=== PATIENT | male | born 1975 | race Caucasian/White ===

== ENCOUNTER 2017-02-16 11:53 | Emergency (ER) | payer OTHER ==
[2017-02-16 12:09] VITALS: O2SAT 97
[2017-02-16] MEDS ORDERED: TORAdol 30 mg Injection IM ONE (12:11)
[2017-02-16] MEDS ORDERED: BENADRYL 50 MG/ML IM ONE (12:11)
--- NOTE | 2017-02-16 12:18 | ERPHSYRPT ---
- History of Present Illness Time Seen by Provider: 02/16/17 12:12 Source: patient Exam Limitations: no limitations Patient Subjective Stated Complaint: pt here for pain right side of neck for over a week now, and has been to dr and had xrays, today he states it feels like its moving, Triage Nursing Assessment: pt alert, but thrashing and yelling in the bed, family also aggitated and wont move out of way to care for pt.pt keeps holding head, no brusing or sweling noted , resp easy, skin w/d pink Physician History: 41 year old white male arrives with complain of pain right posterior lateral neck for over 1 week, severe, states thinks he has foreign body in his neck. Has been seen by his faqmily doctor x ray neck 02/13/17 negative for foreign bodies, cervical spine showed lordotic straightening and mild multilevel endplate spurring. Pmh GERD, orthopedic surgery l4+ l5 surgery on chronic narcotic analgesia until july 2016 Timing/Duration: week(s) (1 week) Severity: moderate Modifying Factors: Improves With: nothing Associated Symptoms: No nausea, No vomiting, No abdominal pain, No shortness of breath, No heartburn, No diaphoresis, No cough, No chills, No chest pain, No fever, No headaches, No loss of appetite, No malaise, No rash, No syncope, No seizure, No weakness Allergies/Adverse Reactions: Penicillins Allergy (Verified 02/16/17 12:02) Rash Home Medications: Omeprazole [Prilosec] 40 mg PO DAILY 07/15/12 [History] Sulfamethoxazole/Trimethoprim [Bactrim Ds Tablet] 1 ea BID 02/16/17 [History] Hx Tetanus, Diphtheria Vaccination/Date Given: No Hx Influenza Vaccination/Date Given: No Hx Pneumococcal Vaccination/Date Given: No Immunizations Up to Date: Yes - Review of Systems Constitutional: No Fever, No Chills Eyes: No Symptoms Ears, Nose, & Throat: No Symptoms Respiratory: No Cough, No Dyspnea Cardiac: No Chest Pain, No Edema, No Syncope Abdominal/Gastrointestinal: No Abdominal Pain, No Nausea, No Vomiting, No Diarrhea Genitourinary Symptoms: No Dysuria Musculoskeletal: Neck Pain Skin: No Symptoms, No Rash Neurological: No Dizziness, No Focal Weakness, No Sensory Changes Psychological: No Symptoms Endocrine: No Symptoms All Other Systems: Reviewed and Negative - Past Medical History Pertinent Past Medical History: Yes Neurological History: No Pertinent History ENT History: No Pertinent History Cardiac History: No Pertinent History Respiratory History: No Pertinent History Endocrine Medical History: No Pertinent History Musculoskeletal History: No Pertinent History GI Medical History: GERD, Other History: No Pertinent History Psycho-Social History: No Pertinent History Male Reproductive Disorders: No Pertinent History - Past Surgical History Past Surgical History: No Neuro Surgical History: No Pertinent History Cardiac: No Pertinent History Respiratory: No Pertinent History Gastrointestinal: No Pertinent History Genitourinary: No Pertinent History Musculoskeletal: Orthopedic Surgery Male Surgical History: No Pertinent History Other Surgical History: spinal nerve root injection l4,L5,hip usrg - Social History Smoking Status: Current every day smoker How long have you smoked: 15 years Exposure to second hand smoke: Yes Drug Use: none Patient Lives Alone: No - Nursing Vital Signs Nursing Vital Signs: Initial Vital Signs Temperature 97.0 F 02/16/17 12:08 Pulse Rate 107 H 02/16/17 12:08 Respiratory Rate 20 02/16/17 12:08 Blood Pressure 136/93 02/16/17 12:08 O2 Sat by Pulse Oximetry 97 02/16/17 12:08 Pain Scale Pain Intensity 10 - Physical Exam General Appearance: moderate distress, other (alert oriented x 3 jumping around in bed) Eye Exam: PERRL/EOMI, eyes nml inspection Ears, Nose, Throat Exam: normal ENT inspection, TMs normal, pharynx normal, moist mucous membranes Neck Exam: other (full rom tender right posterior lateral neck with palpation) Respiratory Exam: normal breath sounds, lungs clear, No respiratory distress Cardiovascular Exam: regular rate/rhythm, normal heart sounds, normal peripheral pulses Gastrointestinal/Abdomen Exam: soft, normal bowel sounds, No tenderness, No mass Back Exam: normal inspection, normal range of motion, No CVA tenderness, No vertebral tenderness Extremity Exam: normal inspection, normal range of motion, pelvis stable Neurologic Exam: alert, oriented x 3, cooperative, normal mood/affect, nml cerebellar function, nml station & gait, sensation nml, No motor deficits Skin Exam: normal color, warm, dry, No rash Lymphatic Exam: No adenopathy SpO2 Interpretation: normal (97%) SpO2: 97 Oxygen Delivery: Room Air - Course Nursing assessment & vital signs reviewed: Yes - CT Exams Head CT Interpretation: Tele-radiologist Report (head CT: No acute intracranial abnormalities or intracranial foreign bodies) Cervical Spine CT Interpretation: Tele-radiologist Report (CT C-spine: Impression: No acute findings) Ordered Tests: Active Orders 24 hr Category Date Time Status CERVICAL SPINE WO CONTRAST [CT] Stat Exams 02/16/17 12:49 Taken HEAD WITHOUT CONTRAST [CT] Stat Exams 02/16/17 12:49 Taken Medication Summary Discontinued Medications Generic Name Dose Route Start Last Admin Trade Name Izabela PRN Reason Stop Dose Admin Diphenhydramine HCl 50 mg 02/16/17 12:11 02/16/17 12:20 Benadryl 50 Mg/Ml IM 02/16/17 12:12 50 mg STAT ONE Administration Diphenhydramine HCl Confirm 02/16/17 12:19 Benadryl 50 Mg/Ml Administered 02/16/17 12:20 Dose 50 mg .ROUTE .STK-MED ONE Ketorolac Tromethamine 60 mg 02/16/17 12:11 02/16/17 12:20 Toradol 30 Mg Injection IM 02/16/17 12:12 60 mg STAT ONE Administration Ketorolac Tromethamine Confirm 02/16/17 12:19 Toradol 30 Mg Injection Administered 02/16/17 12:20 Dose 60 mg .ROUTE .STK-MED ONE - Progress Progress: improved Progress Note: 02/16/17 14:46 This is a 41-year-old white male who arrives with complaint of pain in the right posterior neck also a headache he states he had several days of having this he thought that he had swallowed some glass He had been seen by his family doctor and had a C-spine shot which was negative for radiopaque foreign bodies. He continued to have pain he arrived with moderate pain he was shaking his head around and in complaining of pain in the posterior right neck also with a headache just superior to this. Patient was given Benadryl 50 mg and Toradol he milligrams IM. He has gotten good relief she was actually sleeping when I walk into the room. CT of the head: No acute intracranial abnormalities or intracranial foreign bodies there is mild volume loss. CT C-spine no acute findings he was noted to have some ossification along the anterior longitudinal ligament from C4-C7 which may indicate diffuse idiopathic' s Jose hyperostosis there are hypertrophic changes in the left facet joints at C2-C3 and a mild degree of C5-C6 and C6-C7 there is severe neural foraminal encroachment on the left at C2-3 and a moderate degree at C4-C5 on the right no spinal canal stenosis. Patient's symptoms are on the right side and appear to be somewhat higher than where the patient indicates his discomfort. Patient is now feeling markedly better after Benadryl and Toradol. He states he has Flexeril at home. Patient will be released with a prescription for Naprosyn patient needs to follow-up with Dr. Malloy. And he is aware of this. - Departure Time of Disposition: 14:51 Departure Disposition: Home Clinical Impression: Neck pain on right side, Foraminal stenosis of cervical region Headache Qualifiers: Headache type: unspecified Headache chronicity pattern: acute headache Intractability: not intractable Qualified Code(s): R51 - Headache Condition: Fair Critical Care Time: No Referrals: PATI MALLOY [Primary Care Provider] - Additional Instructions: Return home. Rest. Naprosyn 500 mg orally twice a day with food as needed for pain #20. Flexeril as prescribed by Dr. Malloy. Follow-up with Dr. Malloy, (call Friday for an appointment) Return for acute distress or for severe symptoms Prescriptions: Naproxen 500 mg [Naprosyn 500 MG] 500 mg PO BID #20 tablet
[2017-02-16] MEDS ORDERED: BENADRYL 50 MG/ML ONE (12:19)
[2017-02-16] MEDS ORDERED: TORAdol 30 mg Injection ONE (12:19)
[2017-02-16 14:50] VITALS: BP 148/66; PULSE 90
--- NOTE | 2017-02-16 20:48 | XRAY ---
Indication: Head and neck pain. Patient states, "glass stuck in throat and traveled to head." Multiple contiguous axial images obtained through the head without contrast. Comparison: October 18, 2006. Again normal appearing brain parenchyma, ventricles, and bony calvarium. Visualized paranasal sinuses and mastoid air cells are clear. No radiopaque foreign body. Impression: Normal CT head exam. Comment: Preliminary interpretation was made by [facility]. No discrepancy. CTDI 70.38
--- NOTE | 2017-02-16 20:54 | XRAY ---
Indication: Head and neck pain. Patient states, "glass stuck in throat and traveled to head." Multiple contiguous axial images obtained through the cervical spine. Sagittal and coronal reformatted images obtained. Comparison: August 13, 2012. Axial images negative for acute fracture, suspicious bony lesions, or spinal canal stenosis. Again mild multilevel anterior endplate spurring. New left C2-C3 degenerative facet arthropathy. Sagittal and coronal reformatted images again demonstrates straightening of the cervical lordosis, positional versus paraspinal spasm. Disc spaces maintained. No acute compression fracture, subluxation, or jump facet. Normal-appearing craniocervical junction. Visualized noncontrasted soft tissues including on the apices unremarkable. No radiopaque foreign body. Impression: 1. Again straightening of the cervical lordosis, positional versus paraspinal spasm. 2. Stable multilevel degenerative endplate spurring. New left C2-C3 degenerative facet arthropathy. 3. Negative acute fracture/subluxation. 4. Negative radiopaque foreign body. Comment: Preliminary interpretation was made by [facility]. No discrepancy. CTDI 120.38
== END 2017-02-16 15:03 | disposition home or self-care (01) ==
LOC: ED 11:53
DX: R51 Headache (principal); M54.2 Cervicalgia; M48.02 Spinal stenosis, cervical region
CPT/HCPCS: 36000; 70450; 72125; 96372; 99284; J1200; J1885

== ENCOUNTER 2019-06-11 22:14 | Emergency (ER) | payer OTHER ==
--- NOTE | 2019-06-11 22:45 | ERPHSYRPT ---
- History of Present Illness Time Seen by Provider: 06/11/19 22:41 Historian: patient Exam Limitations: no limitations Physician History: This is a 44-year-old white male who had right-sided abdominal pain yesterday. He felt that it was a muscle strain or tear. Patient was playing ping-pong and he felt localized pain. Today he was out in the [place] walking in this area began hurting again. He was concerned of possible hernia or appendicitis. Patient has no nausea no vomiting no diarrhea. He has had no fever. He has been eating well without any problems. Patient has no urinary tract infection symptoms. He has no abnormal penile discharge. He has no abnormal bowel movements. Patient wants to be evaluated for possible appendicitis. Timing/Duration: yesterday Activities at Onset: none Quality: stabbing Abdominal Pain Onset Location: RLQ, periumbilical Pain Radiation: no radiation Severity of Pain-Max: mild Severity of Pain-Current: mild Modifying Factors: Improves With: palpation Associated Symptoms: denies symptoms Previous symptoms: no prior history Allergies/Adverse Reactions: Penicillins Allergy (Verified 06/11/19 22:45) Rash Home Medications: Omeprazole [Prilosec] 40 mg PO DAILY 07/15/12 [History] Hx Tetanus, Diphtheria Vaccination/Date Given: No Hx Influenza Vaccination/Date Given: No Hx Pneumococcal Vaccination/Date Given: No Travel Risk - International Travel Have you traveled outside of the country in past 3 weeks: No (N) Have you or anyone close to you been diagnosed with or: No Do your reside in a community with a known COVID-19 case?: Yes If Yes where:: [facility] - Review of Systems Constitutional: No Symptoms Eyes: No Symptoms Ears, Nose, & Throat: No Symptoms Respiratory: No Symptoms Cardiac: No Symptoms Abdominal/Gastrointestinal: Abdominal Pain, No Nausea, No Vomiting, No Diarrhea Genitourinary Symptoms: No Symptoms Musculoskeletal: No Symptoms Skin: No Symptoms Neurological: No Symptoms Psychological: No Symptoms Endocrine: No Symptoms Hematologic/Lymphatic: No Symptoms Immunological/Allergic: No Symptoms All Other Systems: Reviewed and Negative - Past Medical History Pertinent Past Medical History: Yes Neurological History: No Pertinent History ENT History: No Pertinent History Cardiac History: No Pertinent History Respiratory History: No Pertinent History Endocrine Medical History: No Pertinent History Musculoskeletal History: No Pertinent History GI Medical History: GERD, Other History: No Pertinent History Psycho-Social History: No Pertinent History Male Reproductive Disorders: No Pertinent History - Past Surgical History Past Surgical History: No Neuro Surgical History: No Pertinent History Cardiac: No Pertinent History Respiratory: No Pertinent History Gastrointestinal: No Pertinent History Genitourinary: No Pertinent History Musculoskeletal: Orthopedic Surgery Male Surgical History: No Pertinent History Other Surgical History: spinal nerve root injection l4,L5,hip usrg - Social History Smoking Status: Current every day smoker How long have you smoked: 15 years Exposure to second hand smoke: Yes Drug Use: none Patient Lives Alone: No - Nursing Vital Signs Nursing Vital Signs: Initial Vital Signs Temperature 98 F 06/11/19 22:22 Pulse Rate 84 06/11/19 22:22 Respiratory Rate 12 06/11/19 22:22 Blood Pressure 162/104 06/11/19 22:22 O2 Sat by Pulse Oximetry 100 06/11/19 22:22 Pain Scale Pain Intensity 3 - Physical Exam General Appearance: no apparent distress, alert, anxiety Eye Exam: PERRL/EOMI, eyes nml inspection Ears, Nose, Throat Exam: normal ENT inspection, moist mucous membranes Neck Exam: normal inspection, non-tender, supple, full range of motion Respiratory Exam: normal breath sounds, lungs clear, airway intact, No chest tenderness, No respiratory distress Cardiovascular Exam: regular rate/rhythm, normal heart sounds, normal peripheral pulses Gastrointestinal/Abdomen Exam: soft, tenderness (Mild localized tenderness to the right of the umbilicus.), guarding ( There is mild guarding but no rebound present), No rebound (It is reproducible with palpation) Rectal Exam: not done Back Exam: normal inspection, normal range of motion, No CVA tenderness, No vertebral tenderness Extremity Exam: normal inspection, normal range of motion, pelvis stable Neurologic Exam: alert, oriented x 3, cooperative, watchguard II-XII nml as tested Skin Exam: normal color, warm, dry Lymphatic Exam: No adenopathy SpO2 Interpretation: normal O2 Delivery: Room Air - Course Nursing assessment & vital signs reviewed: Yes Ordered Tests: Active Orders 24 hr Category Date Time Status Isolation, Initiate & Maintain Q4H Care 06/11/19 22:45 Active ABDOMEN AND PELVIS W/0 CONTRAS [CT] Stat Exams 06/11/19 22:46 Taken UA W/RFX UR CULTURE Stat Lab 06/11/19 23:05 Completed Lab/Rad Data: Laboratory Results 06/11/19 Range/Units 23:05 Urine Color YELLOW (YELLOW) Urine Appearance CLEAR (CLEAR) Urine pH 6.0 (5-6) Ur Specific [place] 1.023 (1.005-1.025) Urine Protein NEGATIVE (Negative) Urine Ketones NEGATIVE (NEGATIVE) Urine Blood MODERATE (0-5) Carl/ul Urine Nitrite NEGATIVE (NEGATIVE) Urine Bilirubin NEGATIVE (NEGATIVE) Urine Urobilinogen 2 (0-1) mg/dL Ur Leukocyte Esterase NEGATIVE (NEGATIVE) Urine WBC (Auto) 0-2 (0-5) /HPF Urine RBC (Auto) 16-25 (0-2) /HPF U Epithel Cells (Auto) NONE (FEW) /HPF Urine Bacteria (Auto) NONE SEEN (NEGATIVE) /HPF Unidentified Crystals 2-5 (NEGATIVE) /HPF Urine Mucus (Auto) SLIGHT (NEGATIVE) /HPF Urine Culture Reflexed NO (NO) Urine Glucose NEGATIVE (NEGATIVE) mg/dL - Progress Progress: unchanged Progress Note: 06/11/19 23:28 CAT scan of the abdomen pelvis reveals no evidence of any acute intra-abdominal process. Counseled pt/family regarding: lab results, need for follow-up, rad results - Departure Departure Disposition: Home Clinical Impression: Abdominal wall pain Condition: Stable Critical Care Time: No Referrals: PATI AUSTIN [Primary Care Provider] - Additional Instructions: Use Tylenol and ibuprofen for pain. Follow-up with your primary care physician for persistent symptoms.
[2019-06-11 23:15] LABS: Appearance CLEAR (CLEAR); Bacteria NONE SEEN /HPF (NEGATIVE); Bilirubin NEGATIVE (NEGATIVE); Blood MODERATE Ery/ul (0-5); Glucose NEGATIVE (NEGATIVE); Ketones NEGATIVE (NEGATIVE); Leukocyte Esterase NEGATIVE (NEGATIVE); Mucus SLIGHT /HPF (NEGATIVE); Nitrite NEGATIVE (NEGATIVE); Protein,Urine Dip NEGATIVE (Negative); Specific Gravity 1.023 (1.005-1.025); Urobilinogen 2 mg/dL (0-1); WBC 0-2 /HPF (0-5)
[2019-06-11 23:31] VITALS: BP 141/99; PULSE 71; O2SAT 97
--- NOTE | 2019-06-12 07:18 | XRAY ---
Indication: Periumbilical pain. Multiple contiguous axial images obtained through the abdomen and pelvis without contrast as ordered. Comparison: December 30, 2008. Lung bases demonstrate stable right lower lobe calcified granuloma. Minimal bilateral dependent atelectasis. No infiltrate or effusion. Heart is not enlarged. Stomach is distended with food. Noncontrasted stomach and bowel loops appear nonobstructed. Normal appendix. There is again mild diffuse scattered colonic fecal debris throughout, more than before. No free fluid/air. New small metallic density medial to the right kidney. Stable fatty liver. Remaining liver, gallbladder, pancreas, spleen, adrenal glands, kidneys, ureters, bladder, and aorta appear unremarkable for noncontrast exam. Osseous structures intact with mild/moderate lumbosacral junction degenerative disc disease. Impression: 1. Worsening fecal stasis without obstruction and stable fatty liver. 2. New right perirenal metallic density of uncertain etiology. 3. Remaining CT abdomen/pelvis without contrast exam is negative. Comment: Preliminary interpretation was made by [facility]. No critical discrepancy.
== END 2019-06-11 23:33 | disposition home or self-care (01) ==
LOC: ED 22:14
DX: R10.31 Right lower quadrant pain (principal); R10.9 Unspecified abdominal pain
CPT/HCPCS: 74176; 81001; 99283

== ENCOUNTER → 2022-06-09 | Emergency (ER) | payer OTHER ==
[~2022-06-09] MED LIST: Sodium Chloride 0.9% 1000 ML 0 ML ONE; Sodium Chloride 0.9% 1000 ML 1,000 ML IV STA
[2022-06-09 01:00] VITALS: BP 109/48; PULSE 77; O2SAT 97
--- NOTE | 2022-06-09 01:15 | ERPHSYRPT ---
- History of Present Illness Time Seen by Provider: 06/09/22 01:10 Historian: patient, EMS Exam Limitations: no limitations Physician History: pt has not been able to urinate today and has abd pain - no fever no vomiting, also no BM for 2 days. abd is generally tender withotu peritoneal signs. discussed labs CBC, CMP Lactate, Janell Lipase , UA, and CT risks and benefits with pt and he wishes to proceed, Ordered, and reviewed results with pt. Hx collaborated with EMS independently. Timing/Duration: day(s) Activities at Onset: none Quality: cramping, dullness, fullness Abdominal Pain Onset Location: generalized abdomen Pain Radiation: back Severity of Pain-Max: moderate Severity of Pain-Current: moderate Modifying Factors: Improves With: nothing Associated Symptoms: back Previous symptoms: same symptoms as today Allergies/Adverse Reactions: Penicillins Allergy (Verified 06/11/19 22:45) Rash Home Medications: Omeprazole [Prilosec] 40 mg PO DAILY 07/15/12 [History] Hx Tetanus, Diphtheria Vaccination/Date Given: No Hx Influenza Vaccination/Date Given: No Hx Pneumococcal Vaccination/Date Given: No - Review of Systems Constitutional: No Fever, No Chills Eyes: No Symptoms Ears, Nose, & Throat: No Symptoms Respiratory: No Cough, No Dyspnea Cardiac: No Chest Pain, No Edema, No Syncope Abdominal/Gastrointestinal: Abdominal Pain, No Nausea, No Vomiting, No Diarrhea Genitourinary Symptoms: Urinary Retention, No Dysuria Musculoskeletal: No Back Pain, No Neck Pain Skin: No Rash Neurological: No Dizziness, No Focal Weakness, No Sensory Changes Psychological: No Symptoms Endocrine: No Symptoms Hematologic/Lymphatic: No Symptoms Immunological/Allergic: No Symptoms All Other Systems: Reviewed and Negative - Past Medical History Pertinent Past Medical History: Yes Neurological History: No Pertinent History ENT History: No Pertinent History Cardiac History: No Pertinent History Respiratory History: No Pertinent History Endocrine Medical History: No Pertinent History Musculoskeletal History: No Pertinent History GI Medical History: GERD, Other History: No Pertinent History Psycho-Social History: No Pertinent History Male Reproductive Disorders: No Pertinent History - Past Surgical History Past Surgical History: No Neuro Surgical History: No Pertinent History Cardiac: No Pertinent History Respiratory: No Pertinent History Gastrointestinal: No Pertinent History Genitourinary: No Pertinent History Musculoskeletal: Orthopedic Surgery Male Surgical History: No Pertinent History Other Surgical History: spinal nerve root injection l4,L5,hip usrg - Social History Smoking Status: Current every day smoker How long have you smoked: 15 years Exposure to second hand smoke: Yes Drug Use: none Patient Lives Alone: No - Nursing Vital Signs Nursing Vital Signs: Initial Vital Signs Temperature 98.5 F 06/09/22 00:58 Pulse Rate 77 06/09/22 00:58 Respiratory Rate 20 06/09/22 00:58 Blood Pressure 109/48 06/09/22 00:58 O2 Sat by Pulse Oximetry 97 06/09/22 00:58 Pain Scale Pain Intensity 0 - Physical Exam General Appearance: no apparent distress, alert Eye Exam: PERRL/EOMI, eyes nml inspection Ears, Nose, Throat Exam: normal ENT inspection, pharynx normal, moist mucous membranes Neck Exam: normal inspection, non-tender, supple, full range of motion Respiratory Exam: normal breath sounds, lungs clear, No respiratory distress Cardiovascular Exam: regular rate/rhythm, normal heart sounds Gastrointestinal/Abdomen Exam: soft, tenderness, guarding, No mass Rectal Exam: deferred Back Exam: normal inspection, normal range of motion, No CVA tenderness, No vertebral tenderness Extremity Exam: normal inspection, normal range of motion, pelvis stable Neurologic Exam: alert, oriented x 3, cooperative, normal mood/affect, nml cerebellar function, sensation nml, No motor deficits Skin Exam: normal color, warm, dry SpO2 Interpretation: normal SpO2: 97 O2 Delivery: Room Air - Course Nursing assessment & vital signs reviewed: Yes Ordered Tests: Active Orders 24 hr Category Date Time Status IV Insertion STAT Care 06/09/22 01:15 Active ABDOMEN AND PELVIS W/0 CONTRAS [CT] Stat Exams 06/09/22 01:15 Taken AMYLASE Stat Lab 06/09/22 01:15 Ordered CBC W DIFF Stat Lab 06/09/22 01:15 Ordered CMP Stat Lab 06/09/22 01:15 Ordered LIPASE Stat Lab 06/09/22 01:15 Ordered Lactic Acid Stat Lab 06/09/22 01:15 Ordered UA W/RFX UR CULTURE Stat Lab 06/09/22 01:15 Ordered Medication Summary Generic Name Dose Route Start Last Admin Trade Name Freq PRN Reason Stop Dose Admin Sodium Chloride 1,000 mls @ 999 mls/hr 06/09/22 01:15 06/09/22 01:44 Sodium Chloride 0.9% 1000 Ml IV 06/09/22 02:15 Not Given .Q1H1M STA Discontinued Medications Generic Name Dose Route Start Last Admin Trade Name Izabela PRN Reason Stop Dose Admin Sodium Chloride Confirm 06/09/22 01:43 Sodium Chloride 0.9% 1000 Ml Administered 06/09/22 01:44 Dose 1,000 mls @ ud .ROUTE .STK-MED ONE - Progress Progress: improved, re-examined Progress Note: 06/09/22 02:12 pt declined lab testing and UA later in the course of treatment and reported that he now had a good BM and urination and that symptoms had improved. He then declined the CT abd . Then he declined to attempt a UA for specimen or any cath to determine residual or any enemas or other treatment at this time. He then asked to sign out AMA without further evaluation in ER and has the capacity with a normal mental status to make this choice. 06/09/22 02:17 Counseled pt/family regarding: lab results, diagnosis, need for follow-up, rad results - Departure Departure Disposition: AMA Clinical Impression: abdominal pain and urinary retention Condition: Good Critical Care Time: No Referrals: PATI AUSTIN [Primary Care Provider] - Follow up/PCP as directed Additional Instructions: followup with your Dr. as more serious problems may be causing your symptoms and not yet detected on vu exam performed. return meantime if symptoms return or further concerns.
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
== END | disposition left against medical advice (07) ==
LOC: ED 00:57
DX: R33.9 Retention of urine, unspecified (principal); R10.9 Unspecified abdominal pain; Z72.0 Tobacco use
CPT/HCPCS: 74176; 99281

== ENCOUNTER 2023-04-18 11:08 | Emergency (ER) | payer OTHER ==
[2023-04-18 11:31] VITALS: TEMP 97.8
--- NOTE | 2023-04-18 12:07 | ERPHSYRPT ---
- History of Present Illness Time Seen by Provider: 04/18/23 11:38 Historian: patient Exam Limitations: no limitations Patient Subjective Stated Complaint: pt here for abd pain that he states he has had for months, he has 2-3 hernias that need fixed but states they will not fix till he has colonoscopy. some nasuea, able to eat, no fever Triage Nursing Assessment: pt alert, resp easy.skin w/d/p, abd slightly distended, tender to touch. moves all ext well, no edema noted Physician History: Pt states for the past 8 days he has had dull RLQ abdominal pain with nausea; LBM was 5 days ago & wnl. Pt also states he has had intermittent chest aches for the past 8 years and intermittent numbness down his left arm with occasional brief heart fluttering. Pt denies headache, vomiting, fever, weakness. Allergies/Adverse Reactions: Penicillins Allergy (Verified 04/18/23 11:38) Rash Home Medications: Omeprazole [Prilosec] 40 mg PO DAILY 07/15/12 [History] Tamsulosin HCl 0.4 mg [Flomax 0.4 MG] 0.4 mg PO DAILY 08/13/22 [History] Hx Tetanus, Diphtheria Vaccination/Date Given: No Hx Influenza Vaccination/Date Given: No Hx Pneumococcal Vaccination/Date Given: No Immunizations Up to Date: Yes Travel Risk - International Travel Have you traveled outside of the country in past 3 weeks: No - Coronavirus Screening Are you exhibiting any of the following symptoms?: No Close contact with a COVID-19 positive Pt in past 14-21 Days: No - Vaccine Status Have you recieved a Covid-19 vaccination: No - Review of Systems Constitutional: No Fever Respiratory: No Dyspnea Cardiac: Chest Pain, Palpitations Abdominal/Gastrointestinal: Abdominal Pain, Nausea, No Vomiting, No Diarrhea Neurological: Sensory Changes (occasional numbness of left arm ), No Headache - Past Medical History Pertinent Past Medical History: Yes Neurological History: No Pertinent History ENT History: No Pertinent History Cardiac History: No Pertinent History Respiratory History: No Pertinent History Endocrine Medical History: No Pertinent History Musculoskeletal History: No Pertinent History GI Medical History: GERD, Hernia, Other History: No Pertinent History Psycho-Social History: No Pertinent History Male Reproductive Disorders: No Pertinent History - Past Surgical History Past Surgical History: Yes Neuro Surgical History: No Pertinent History Cardiac: No Pertinent History Respiratory: No Pertinent History Gastrointestinal: No Pertinent History Genitourinary: No Pertinent History Musculoskeletal: Orthopedic Surgery Male Surgical History: No Pertinent History Other Surgical History: spinal nerve root injection l4,L5,hip scope - Social History Smoking Status: Former smoker How long have you smoked: 15 years Exposure to second hand smoke: Yes Drug Use: marijuana Patient Lives Alone: No - Nursing Vital Signs Nursing Vital Signs: Initial Vital Signs Temperature 97.8 F 04/18/23 11:30 Pulse Rate 86 04/18/23 11:30 Respiratory Rate 18 04/18/23 11:30 Blood Pressure 143/100 04/18/23 11:30 O2 Sat by Pulse Oximetry 98 04/18/23 11:30 Pain Scale Pain Intensity 0 - Physical Exam General Appearance: alert Eye Exam: PERRL/EOMI Ears, Nose, Throat Exam: pharynx normal Neck Exam: normal inspection Respiratory Exam: normal breath sounds Cardiovascular Exam: normal heart sounds Gastrointestinal/Abdomen Exam: normal bowel sounds, tenderness (mild diffuse) Extremity Exam: No pedal edema Neurologic Exam: alert, cooperative, normal mood/affect, sensation nml, No motor deficits Skin Exam: warm, dry SpO2 Interpretation: normal SpO2: 98 O2 Delivery: Room Air - Course Nursing assessment & vital signs reviewed: Yes EKG Interpreted by Me: RATE (74), Sinus Rhythm, Left [place] Deviation, Other (QTc = 418) - Radiology Exams Chest X-ray Interpretation: Teleradiologist Report (normal) - CT Exams Head CT Interpretation: Tele-radiologist Report (unremarkable) Abdomen/Pelvis CT Interpretation: Tele-radiologist Report (No definite acute intra-abdominal abnormality could be detected. Mild hepatomegaly. See rest of report.) Ordered Tests: Active Orders 24 hr Category Date Time Status EKG-ER Only STAT Care 04/18/23 12:11 Active IV Insertion STAT Care 04/18/23 12:00 Active ABDOMEN AND PELVIS W/0 CONTRAS [CT] Stat Exams 04/18/23 12:00 Completed CHEST 2 VIEWS (PA AND LAT) Stat Exams 04/18/23 12:12 Completed HEAD WITHOUT CONTRAST [CT] Stat Exams 04/18/23 12:19 Completed AMYLASE Stat Lab 04/18/23 12:15 Completed CBC W DIFF Stat Lab 04/18/23 12:15 Completed CMP Stat Lab 04/18/23 12:15 Completed LIPASE Stat Lab 04/18/23 12:15 Completed MAGNESIUM Stat Lab 04/18/23 12:15 Completed TROPONIN Q4H Lab 04/18/23 12:15 Completed TROPONIN Q4H Lab 04/18/23 16:15 Ordered TROPONIN Q4H Lab 04/18/23 20:15 Ordered UA W/RFX UR CULTURE Stat Lab 04/18/23 14:46 Completed Medication Summary Generic Name Dose Route Start Last Admin Trade Name Freq PRN Reason Stop Dose Admin Sodium Chloride 1,000 mls @ 100 mls/hr 04/18/23 12:00 04/18/23 12:57 Sodium Chloride 0.9% 1000 Ml IV 05/18/23 11:59 100 mls/hr .Q10H MARLENI Administration Discontinued Medications Generic Name Dose Route Start Last Admin Trade Name Freq PRN Reason Stop Dose Admin Ketorolac Tromethamine 30 mg 04/18/23 12:00 04/18/23 13:01 Ketorolac Tromethamine 30 Mg/Ml Inj IV 04/18/23 12:01 Not Given STAT ONE Ondansetron HCl 4 mg 04/18/23 12:00 04/18/23 13:02 Ondansetron Hcl 4 Mg/2 Ml Vial IV 04/18/23 12:01 4 mg STAT ONE Administration Ondansetron HCl Confirm 04/18/23 12:54 Ondansetron Hcl 4 Mg/2 Ml Vial Administered 04/18/23 12:55 Dose 4 mg .ROUTE .[employer] ONE Lab/Rad Data: Laboratory Result Diagrams 04/18/23 12:15 04/18/23 12:15 Laboratory Results 04/18/23 04/18/23 04/18/23 Range/Units 14:46 12:15 12:15 WBC (4.0-10.5) x10^3/uL RBC (4.1-5.6) x10^6/uL Hgb (12.5-18.0) g/dL Hct (42-50) % MCV (78-100) fL MCH (26-32) pg MCHC (32-36) g/dL RDW (11.5-14.0) % Plt Count (150-450) x10^3/uL MPV (7.5-11.0) fL Gran % (36.0-66.0) % Immature Gran % (Auto) (0.00-0.4) % Nucleat RBC Rel Count (0.00-0.1) % Eos # (Auto) (0-0.5) x10^3/uL Immature Gran # (Auto) (0.00-0.03) x10^3u/L Absolute Lymphs (auto) (1.0-4.6) x10^3/uL Absolute Monos (auto) (0.0-1.3) x10^3/uL Absolute Nucleated RBC (0.00-0.01) x10^3u/L Lymphocytes % (24.0-44.0) % Monocytes % (0.0-12.0) % Eosinophils % (0.00-5.0) % Basophils % (0.0-0.4) % Absolute Granulocytes (1.4-6.9) x10^3/uL Basophils # (0-0.4) x10^3/uL Sodium 138 (137-145) mmol/L Potassium 4.0 (3.5-5.1) mmol/L Chloride 105 (98-107) mmol/L Carbon Dioxide 24 (22-30) mmol/L Anion Gap 12.1 (5-15) MEQ/L BUN 16 (9-20) mg/dL Creatinine 0.77 (0.66-1.25) mg/dL Estimated GFR 112.5 ML/MIN Glucose 119 H (74-106) mg/dL Calcium 9.5 (8.4-10.2) mg/dL Magnesium 2.1 (1.6-2.3) mg/dL Total Bilirubin 0.60 (0.2-1.3) mg/dL AST 28 (17-59) U/L ALT 38 (0-50) U/L Alkaline Phosphatase 79 (38-126) U/L Troponin I < 0.012 (0.000-0.034) ng/mL Serum Total Protein 7.4 (6.3-8.2) g/dL Albumin 4.4 (3.5-5.0) g/dL Amylase 115 H (30-110) U/L Lipase 269 (23-300) U/L Urine Color Yellow (Yellow) Urine Appearance Clear (Clear) Urine pH 6.5 (4.6-8.0) Ur Specific Lind 1.020 (1.005-1.030) Urine Protein Negative (Negative) Urine Glucose (UA) Negative (Negative) mg/dL Urine Ketones Negative (Negative) Urine Blood Negative (Negative) Urine Nitrite Negative (Negative) Urine Bilirubin Negative (Negative) Urine Urobilinogen 0.2 (0.2) mg/dL Ur Leukocyte Esterase Negative (Negative) U Hyaline Cast (Auto) NONE SEEN (0-2) /LPF Urine Microscopic RBC 0-2 (0-5) /HPF Urine Microscopic WBC 0-2 (0-5) /HPF Ur Epithelial Cells None Seen (None Seen) /HPF Urine Bacteria None Seen (None Seen) /HPF Urine Culture Reflexed NO (NO) 04/18/23 Range/Units 12:15 WBC 8.4 (4.0-10.5) x10^3/uL RBC 5.73 H (4.1-5.6) x10^6/uL Hgb 17.6 (12.5-18.0) g/dL Hct 51.4 H (42-50) % MCV 89.7 (78-100) fL MCH 30.7 (26-32) pg MCHC 34.2 (32-36) g/dL RDW 13.4 (11.5-14.0) % Plt Count 321 (150-450) x10^3/uL MPV 9.6 (7.5-11.0) fL Gran % 54.8 (36.0-66.0) % Immature Gran % (Auto) 0.2 (0.00-0.4) % Nucleat RBC Rel Count 0.0 (0.00-0.1) % Eos # (Auto) 0.20 (0-0.5) x10^3/uL Immature Gran # (Auto) 0.02 (0.00-0.03) x10^3u/L Absolute Lymphs (auto) 2.95 (1.0-4.6) x10^3/uL Absolute Monos (auto) 0.59 (0.0-1.3) x10^3/uL Absolute Nucleated RBC 0.00 (0.00-0.01) x10^3u/L Lymphocytes % 35.0 (24.0-44.0) % Monocytes % 7.0 (0.0-12.0) % Eosinophils % 2.4 (0.00-5.0) % Basophils % 0.6 (0.0-0.4) % Absolute Granulocytes 4.63 (1.4-6.9) x10^3/uL Basophils # 0.05 (0-0.4) x10^3/uL Sodium (137-145) mmol/L Potassium (3.5-5.1) mmol/L Chloride (98-107) mmol/L Carbon Dioxide (22-30) mmol/L Anion Gap (5-15) MEQ/L BUN (9-20) mg/dL Creatinine (0.66-1.25) mg/dL Estimated GFR ML/MIN Glucose (74-106) mg/dL Calcium (8.4-10.2) mg/dL Magnesium (1.6-2.3) mg/dL Total Bilirubin (0.2-1.3) mg/dL AST (17-59) U/L ALT (0-50) U/L Alkaline Phosphatase (38-126) U/L Troponin I (0.000-0.034) ng/mL Serum Total Protein (6.3-8.2) g/dL Albumin (3.5-5.0) g/dL Amylase (30-110) U/L Lipase (23-300) U/L Urine Color (Yellow) Urine Appearance (Clear) Urine pH (4.6-8.0) Ur Specific Lind (1.005-1.030) Urine Protein (Negative) Urine Glucose (UA) (Negative) mg/dL Urine Ketones (Negative) Urine Blood (Negative) Urine Nitrite (Negative) Urine Bilirubin (Negative) Urine Urobilinogen (0.2) mg/dL Ur Leukocyte Esterase (Negative) U Hyaline Cast (Auto) (0-2) /LPF Urine Microscopic RBC (0-5) /HPF Urine Microscopic WBC (0-5) /HPF Ur Epithelial Cells (None Seen) /HPF Urine Bacteria (None Seen) /HPF Urine Culture Reflexed (NO) - Progress Progress: unchanged Counseled pt/family regarding: lab results, diagnosis, need for follow-up, rad results Medical Desision Making - Diagnostic Testing Diagnostic test were ordered, analyzed, and reviewed by me: Yes Radiological Interpretation: Teleradiologist Report - Departure Departure Disposition: Home Clinical Impression: Abdominal pain, Nausea, Chest pain, intermittent left arm numbness Condition: Stable Critical Care Time: No Referrals: PATI AUSTIN [Primary Care Provider] - Follow up/PCP as directed Instructions: Severe Abdominal Pain, Adult (DC), Chest Pain (DC) Additional Instructions: Follow up with private doctor tomorrow. Forms: Work/School Release Form Prescriptions: Ondansetron ODT 4 MG [Zofran Odt 4 mg] 4 mg PO Q6H PRN PRN #10 tablet PRN Reason: Nausea
[2023-04-18 12:31] LABS: Absolute Neutrophil Ct (ANC) 4.63 x10^3/uL (1.4-6.9); BASOPHIL % 0.6 % (0.0-0.4); Basophil (Absolute #) 0.05 x10^3/uL (0-0.4); Eosinophil % 2.4 % (0.00-5.0); Hematocrit 51.4 % (42-50); Hemoglobin 17.6 g/dL (12.5-18.0); IMMATURE GRAN # 0.02 x10^3u/L (0.00-0.03); IMMATURE GRAN % 0.2 % (0.00-0.4); Lymphocyte (Absolute #) 2.95 x10^3/uL (1.0-4.6); Mean Cell Volume 89.7 fL (78-100); Mean Corpuscular Hemoglobin 30.7 pg (26-32); Mean Corpuscular Hgb Concent. 34.2 g/dL (32-36); Mean Platelet Volume 9.6 fL (7.5-11.0); Monocyte (Absolute #) 0.59 x10^3/uL (0.0-1.3); Neutrophil % 54.8 % (36.0-66.0); Platelet Count 321 x10^3/uL (150-450); Red Blood Count 5.73 x10^6/uL (4.1-5.6); Red Cell Distribution Width 13.4 % (11.5-14.0); White Blood Count 8.4 x10^3/uL (4.0-10.5)
[2023-04-18 12:39] LABS: ALBUMIN 4.4 g/dL (3.5-5.0); ANION GAP 12.1 MEQ/L (5-15); BILIRUBIN,TOTAL 0.6 mg/dL (0.2-1.3); Calcium 9.5 mg/dL (8.4-10.2); Creatinine 1 0.77 mg/dL (0.66-1.25); EST GLOMERULAR FILTRATION RATE 112.5 ML/MIN; MAGNESIUM 2.1 mg/dL (1.6-2.3); Total Protein 7.4 g/dL (6.3-8.2)
[2023-04-18] MEDS ORDERED: Zofran 4 MG/2 ML VIAL ONE (12:54)
[2023-04-18] MEDS ORDERED: Sodium Chloride 0.9% 1000 ML 1,000 ML ONE (12:54)
[2023-04-18] MEDS: Sodium Chloride 0.9% 1000 ML 1,000 ML IV SCH (12:57)
[2023-04-18] MEDS: TORAdol 30 mg Injection IV ONE (13:01)
[2023-04-18] MEDS: Zofran 4 MG/2 ML VIAL IV ONE (13:02)
--- NOTE | 2023-04-18 13:19 | XRAY ---
CLINICAL HISTORY: chest achy TECHNIQUE: X-ray of the chest, PA, and lateral 2 views COMPARISON: None. FINDINGS: A radiographic examination of the chest demonstrates clear lungs. No collapse or consolidation is seen. Normal configuration of the mediastinum. The yasir are normal in size and position. The cardiac size is normal. Costophrenic and cardiophrenic angles are clear. Retrocardiac and retrosternal spaces are normal. The bony thorax is unremarkable. IMPRESSION: Normal X-ray study of the chest. Electronically Signed by: Willie Miller MD. (04/18/2023 13:15:20 EST)
--- NOTE | 2023-04-18 13:29 | XRAY ---
CLINICAL HISTORY: numbness of left arm TECHNIQUE: An axial non-contrast CT scan of the brain was performed from the skull base to the high parietal region. COMPARISON: None FINDINGS: The visualized brain parenchyma shows a normal appearance. Meehan-white matter differentiation is maintained. No midline shifts or deformity. No intracerebral or extra axial hematoma. Normal size and configuration of the cerebral ventricles. Normal CT appearance of the posterior fossa structures namely the cerebellar hemispheres, brainstem, and cerebellar peduncles. The IACs are unremarkable. The cerebello-pontine angles are clear. The pituitary gland, the pineal gland, and the optic chiasm are unremarkable. The osseous structures in the skull base are unremarkable. No definite calvarium fractures. The scanned paranasal sinuses are clear. Deviated nasal septum with bony spur toward left side. IMPRESSION: The non-enhanced CT study for the brain is unremarkable. Electronically Signed by: Willie Miller MD. (04/18/2023 13:25:21 EST)
--- NOTE | 2023-04-18 13:55 | XRAY ---
CLINICAL HISTORY: pain TECHNIQUE: CT scan of the abdomen and pelvis was performed without contrast. Coronal and sagittal reconstructive images were also obtained. COMPARISON: None FINDINGS: Abdomen: The liver is mildly enlarged in size and measures 19cm. No definite focal or diffuse parenchymal abnormality. The intrahepatic biliary radicals and the bile ducts are normal. The spleen, pancreas, and adrenal glands are unremarkable. The kidneys are normal in size and shape. No calculi or hydronephrosis. A metallic density-giving streak artifact is seen medial to the upper pole of the right kidney. The gallbladder is normal. No pericholecystic collection or radio-dense calculi in the gall bladder. The ascending colon, the transverse colon, the descending colon, visualized small bowel loops are unremarkable. The appendix appears normal with a maximum diameter of 5mm. No evidence of any fluid collection or definite inflammation. A few non-specific tiny lymph nodes are seen in the right iliac fossae. Pelvis: The urinary bladder is unremarkable. The rectosigmoid colon is unremarkable. The prostate is normal. No evidence of pelvic lymphadenopathy. The osseous structures in the pelvis, lower rib cage, and lumbar spine show no lytic or sclerotic bone lesions. Mild degenerative changes are seen in the lumbar spine with grade I retrolisthesis at L3-L4 and L5-S1 levels. Calcified densities were noted along hip articulations bilaterally, likely enthesopathy. Slices through the lower chest reveal atelectatic changes in posterior segments of bilateral lower lobes with a small 8mm diffusely calcified nodule/granuloma in the posterior segment of the right lower lobe- benign finding. Mild bilateral pleural thickening is also appreciated. IMPRESSION: 1. No definite acute intra-abdominal abnormality could be detected. 2. Mild hepatomegaly, needs clinical correlation. 3. A metallic density is seen medial to the upper pole of the right kidney giving a streak artifact, needs clinical correlation. 4. Mild degenerative changes in the spine with grade 1 retrolisthesis at L3-L4 and L5-S1 levels. Electronically Signed by: Willie Miller MD. (04/18/2023 13:51:29 EST)
[2023-04-18 14:58] LABS: Appearance Clear (Clear); Bacteria None Seen /HPF (None Seen); Bilirubin Negative (Negative); Blood Negative (Negative); Epithelial Cells None Seen /HPF (None Seen); Glucose, Urine Negative (Negative); Hyaline Casts NONE SEEN /LPF (0-2); Ketones Negative (Negative); Leukocyte Esterase Negative (Negative); Nitrite Negative (Negative); Ph 6.5 (4.6-8.0); Protein,Urine Dip Negative (Negative); RBC 0-2 /HPF (0-5); Urobilinogen 0.2 mg/dL (0.2); WBC 0-2 /HPF (0-5)
[2023-04-18 15:01] LABS: ADD URINE CULTURE? NO (NO)
[2023-04-18 15:20] VITALS: O2SAT 98
[2023-04-18 15:36] VITALS: BP 151/105; PULSE 71; RESP 19
== END 2023-04-18 15:52 | disposition home or self-care (01) ==
LOC: ED 11:08
DX: R10.31 Right lower quadrant pain (principal); R11.0 Nausea; R07.9 Chest pain, unspecified; R20.0 Anesthesia of skin; Z79.899 Other long term (current) drug therapy; Z28.310 Unvaccinated for COVID-19
CPT/HCPCS: 36000; 36415; 70450; 71046; 74176; 80053; 81001; 82150; 83690; 83735; 84484; 85025; 93005; 96360; 96361; 96374; 99284; J2405

== ENCOUNTER 2024-01-26 06:26 | Day surgery (SDC) | payer OTHER ==
[2024-01-26 07:02] LABS: BASOPHIL % 0.4 % (0.2-1.2); Basophil (Absolute #) 0.03 x10^3/uL (0.01-0.08); Eosinophil % 2.7 % (0.8-7.0); Eosinophil (Absolute #) 0.22 x10^3/uL (0.04-0.54); Hematocrit 48.3 % (40.1-51.0); IMMATURE GRAN # 0.02 x10^3u/L (0.001-0.031); IMMATURE GRAN % 0.2 % (0.001-0.429); Lymphocyte (Absolute #) 3.35 x10^3/uL (1.32-3.57); Lymphocytes % 40.9 % (21.8-53.1); Mean Cell Volume 87.8 fL (79.0-92.2); Mean Corpuscular Hemoglobin 30.9 pg (25.7-32.2); Mean Corpuscular Hgb Concent. 35.2 g/dL (32.3-36.5); Mean Platelet Volume 8.9 fL (9.4-12.4); Monocyte (Absolute #) 0.68 x10^3/uL (0.30-0.82); Monocytes % 8.3 % (5.3-12.2); Neutrophil % 47.5 % (34.0-67.9); Platelet Count 314 x10^3/uL (163-337); Red Cell Distribution Width 12.9 % (11.6-14.4); White Blood Count 8.2 x10^3/uL (4.23-9.07)
[2024-01-26 07:14] LABS: ANION GAP 9.5 MEQ/L (5-15); Calcium 9.5 mg/dL (8.4-10.2); Creatinine 1 0.91 mg/dL (0.66-1.25); EST GLOMERULAR FILTRATION RATE 105.3 ML/MIN; Potassium 4.4 mmol/L (3.5-5.1)
[2024-01-26] MEDS ORDERED: DIPRIVAN 200 MG/20 ML IV ONE ×3 (08:00→08:26)
[2024-01-26 09:05] VITALS: RESP 16
[2024-01-26 09:12] VITALS: BP 125/91; PULSE 67; TEMP 97.9; O2SAT 98
--- NOTE | 2024-01-27 11:47 | OP ---
SURGERY DATE/TIME: 01/26/2024 [id number] PREOPERATIVE DIAGNOSIS: Screening exam. POSTOPERATIVE DIAGNOSIS: Multiple colon polyps. PROCEDURE: Colonoscopy with hot snare polypectomies. SURGEON: Raciel Malloy MD ANESTHESIA: Medications were given by the anesthesia department. INDICATIONS: The patient is a 48-year-old white male patient presenting now for a screening colonoscopy. He was apprised of the risks of the procedure including the risk of perforation, phlebitis, untoward reaction to medication, bleeding, and missed lesions. The patient verbalized his understanding and desired to have the procedure performed. DESCRIPTION OF PROCEDURE AND FINDINGS: Patient was given medication by the anesthesia department. He had continuous pulse oximetry, ECG monitoring, and intermittent blood pressure monitoring during the examination. He was placed in the left lateral decubitus position. Digital rectal examination was performed and revealed normal anal sphincter tone and no masses. Normal prostate. The flexible Olympus videocolonoscope was used to intubate the rectum. A view of the colon was developed sequentially to the cecum. Upon insertion and withdrawal, was noted multiple polyps beginning in the proximal transverse colon, a second in the mid transverse colon, a third in the mid sigmoid colon, a fourth in the distal sigmoid colon, and a fifth in the rectosigmoid area. These were all removed and collected for pathologic evaluation using the hot polypectomy snare. No other mucosal lesions being noted, the scope was removed. The patient tolerated the procedure well and was sent back to outpatient recovery in good condition. The prep was noted to be fair.
== END 2024-01-26 09:20 | disposition home or self-care (01) ==
LOC: SDC 06:26
PROVIDERS: ATTEND Family Medicine
DX: Z12.11 Encounter for screening for malignant neoplasm of colon (principal); D12.7 Benign neoplasm of rectosigmoid junction; D12.5 Benign neoplasm of sigmoid colon; D12.3 Benign neoplasm of transverse colon
CPT/HCPCS: 36415; 80048; 85025; J2704